=== PATIENT | female | born 1990 | race Caucasian/White ===

== ENCOUNTER 2017-04-28 06:13 | Inpatient (IN) | payer OTHER ==
[2017-04-28] MEDS ORDERED: CARBOPROST 250 MCG INJ IM ×3 (07:00→23:30)
[2017-04-28] MEDS ORDERED: LIDOCAINE 1% (MPF) 30 ML INJ INJ ×2 (07:00)
[2017-04-28] MEDS ORDERED: OXYCODONE/ASPIRIN (4.88/325) TAB PO (07:00)
[2017-04-28] MEDS ORDERED: IBUPROFEN 600 MG TAB PO ×2 (07:00)
[2017-04-28] MEDS ORDERED: MISOPROSTOL 200 MCG TAB PR ×3 (07:00→23:30)
[2017-04-28] MEDS ORDERED: OXYTOCIN 30 UNITS/LR 500 ML IV ×6 (07:00→23:30)
[2017-04-28] MEDS ORDERED: METHYLERGONOVINE 0.2 MG INJ IM ×3 (07:00→23:30)
[2017-04-28] MEDS ORDERED: BUTORPHANOL 2 MG INJ IV ×3 (07:00)
[2017-04-28] MEDS ORDERED: HYDROCODONE/APAP (5/325) TAB PO (07:00)
[2017-04-28] MEDS: LACTATED RINGER'S 1,000 ML IV ×3 (08:21→13:17)
[2017-04-28 08:27] LABS: ADD MAN DIFF? NO
[2017-04-28 08:31] LABS: WHITE BLOOD COUNT 10.2 10^3/ul (4.8-10.8)
[2017-04-28 08:31] LABS: BASOPHILS % 0.4 % (0.0-2.0); EOSINOPHILS # 0.3 10^3/ul (0.0-0.5); EOSINOPHILS % 2.9 % (0.0-7.0); HEMATOCRIT 35.1 % (37.0-47.0); HEMOGLOBIN 12.3 g/dl (12.0-16.0); LYMPHOCYTES # 2.5 10^3/ul (0.8-2.9); LYMPHOCYTES % 24.6 % (15.0-51.0); MEAN CORPUSCULAR HEMOGLOBIN 32.4 pg (29.0-33.0); MEAN CORPUSCULAR VOLUME 92.4 fl (82.0-101.0); MONOCYTE # 0.9 10^3/ul (0.3-0.9); MONOCYTES % 8.6 % (0.0-11.0); NEUTROPHIL # 6.4 10^3/ul (1.6-7.5); NEUTROPHILS % 62.6 % (39.0-77.0); PLATELET COUNT 165 10^3/UL (140-415); RED CELL DISTRIBUTION WIDTH 13.1 % (11.5-14.5)
[2017-04-28] MEDS: OXYTOCIN 30 UNITS/LR 500 ML IV ×2 (08:37→23:07)
[2017-04-28 09:16] LABS: INR 0.86; PARTIAL THROMBOPLASTIN TIME 26.4 Sec (25.0-35.0); PROTIME 11.8 Sec (11.9-14.9); PT RATIO 0.9
[2017-04-28 09:22] LABS: HEPATITIS B SURFACE ANTIGEN NEGATIVE (NEGATIVE)
[2017-04-28] MEDS ORDERED: FENTAnyl 2MCG/ML-ROPIV 0.2% 100 ML (13:07)
[2017-04-28] MEDS ORDERED: DIPHENHYDRAMINE 50 MG INJ IV (17:30)
[2017-04-28] MEDS ORDERED: ONDANSETRON 4 MG INJ IV (17:30)
[2017-04-28] MEDS ORDERED: NALOXONE (0.4 MG/ML) INJ IV (17:30)
[2017-04-28] MEDS: FENTAnyl 2MCG/ML-ROPIV 0.2% 100 ML BAG EPI (21:15)
[2017-04-28] MEDS ORDERED: MINERAL OIL LIGHT 10 ML VIAL (22:19)
[2017-04-28] MEDS: MINERAL OIL LIGHT 10 ML VIAL TOP (22:30)
[2017-04-28 22:35] LABS: RAPID PLASMA REAGIN NONREACTIVE (NR)
[2017-04-28 22:51] LABS: AMPHETAMINE/METHAMPHETAMINE Negative (NEGATIVE); BARBITURATES Negative (NEGATIVE); BENZODIAZEPINES Negative (NEGATIVE); CANNABINOIDS Negative (NEGATIVE); COCAINE Negative (NEGATIVE); OPIATES Negative (NEGATIVE)
[2017-04-29] MEDS: LACTATED RINGER'S 1,000 ML IV* (01:09)
[2017-04-29] MEDS: OXYTOCIN 30 UNITS/LR 500 ML IV (01:09)
[2017-04-29] MEDS: IBUPROFEN 600 MG TAB PO ×5 (01:10→23:02)
[2017-04-29] MEDS: LANOLIN 7 GM TUBE TOP (05:45)
[2017-04-29] MEDS: BENZOCAINE 20% 56 ML SPRAY TOP (05:45)
[2017-04-29] MEDS: WITCH HAZEL/GLYCERIN PAD PR (05:46)
[2017-04-29] MEDS: HYDROCODONE/APAP (5/325) TAB PO (10:04)
[2017-04-30] MEDS: IBUPROFEN 600 MG TAB PO ×2 (05:23→13:16)
[2017-04-30 10:32] LABS: ADD MAN DIFF? NO
[2017-04-30 10:50] LABS: BASOPHILS % 0.3 % (0.0-2.0); EOSINOPHILS # 0.3 10^3/ul (0.0-0.5); EOSINOPHILS % 2.6 % (0.0-7.0); HEMATOCRIT 32.2 % (37.0-47.0); LYMPHOCYTES % 17.8 % (15.0-51.0); MEAN CORPUSCULAR HEMOGLOBIN 32.9 pg (29.0-33.0); MEAN CORPUSCULAR HGB CONC 34.2 g/dl (32.0-37.0); MEAN CORPUSCULAR VOLUME 96.4 fl (82.0-101.0); MONOCYTE # 0.5 10^3/ul (0.3-0.9); MONOCYTES % 4.4 % (0.0-11.0); NEUTROPHIL # 8.2 10^3/ul (1.6-7.5); PLATELET COUNT 165 10^3/UL (140-415); RED BLOOD COUNT 3.34 10^6/ul (4.20-5.40); RED CELL DISTRIBUTION WIDTH 13.3 % (11.5-14.5)
[2017-04-30] MEDS: DIPHTH/TET/ACEL PERTUSS (ADULT) 0.5 ML VIAL IM* (13:12)
== END 2017-04-30 14:02 | disposition home or self-care (01) | DRG 775 ==
LOC: PP1 04-29 00:45 → L-D 06:13
PROVIDERS: Obstetrics & Gynecology
PROC: 10E0XZZ Delivery of Products of Conception, External Approach (ICD-10-PCS; principal; 2017-04-28 06:00)
PROC: 0KQM0ZZ Repair Perineum Muscle, Open Approach (ICD-10-PCS; 2017-04-28 06:00)
PROC: 3E033VJ Introduction of Other Hormone into Peripheral Vein, Percutaneous Approach (ICD-10-PCS; 2017-04-28 06:00)
DX: O48.0 Post-term pregnancy (principal); O69.81X0 Labor and delivery complicated by cord around neck, without compression, not applicable or unspecified; O70.1 Second degree perineal laceration during delivery; Z3A.40 40 weeks gestation of pregnancy; Z37.0 Single live birth
CPT/HCPCS: 62319; 80307; 85025; 85610; 85730; 86592; 86850; 86900; 86901; 87340; 90715